=== PATIENT | male | born 1980 | race Caucasian/White ===

== ENCOUNTER → 2016-09-27 | Outpatient (CLI) | payer BC, MEDICARE | END | disposition home or self-care (01) | LOC: PETCFH 08:41 | PROVIDERS: ATTEND Internal Medicine Gastroenterology | DX: K52.29 Other allergic and dietetic gastroenteritis and colitis (principal); R11.0 Nausea; C92.01 Acute myeloblastic leukemia, in remission; K52.9 Noninfective gastroenteritis and colitis, unspecified; E73.9 Lactose intolerance, unspecified; K21.9 Gastro-esophageal reflux disease without esophagitis; Z68.27 Body mass index [BMI] 27.0-27.9, adult; Z94.81 Bone marrow transplant status | CPT/HCPCS: 78264; A9541 ==

== ENCOUNTER → 2016-11-20 | Outpatient (CLI) | payer BC, MEDICARE | END | disposition home or self-care (01) | LOC: RAD 09:00 | PROVIDERS: ATTEND Internal Medicine Gastroenterology | DX: K52.9 Noninfective gastroenteritis and colitis, unspecified (principal); K21.0 Gastro-esophageal reflux disease with esophagitis; K52.29 Other allergic and dietetic gastroenteritis and colitis; K31.84 Gastroparesis | CPT/HCPCS: 74250 ==

== ENCOUNTER → 2017-03-25 | Outpatient (CLI) | payer BC, MEDICARE | END | disposition home or self-care (01) | LOC: CFH 08:52 | PROVIDERS: ATTEND Internal Medicine Nephrology | DX: I12.9 Hypertensive chronic kidney disease with stage 1 through stage 4 chronic kidney disease, or unspecified chronic kidney disease (principal); N18.3 Chronic kidney disease, stage 3 (moderate); N20.0 Calculus of kidney; R79.9 Abnormal finding of blood chemistry, unspecified | CPT/HCPCS: 76770 ==